=== PATIENT | male | born 1990 | race Caucasian/White ===

== ENCOUNTER 2017-04-01 02:22 | Emergency (ER) | payer SELFPAY ==
[2017-04-01 03:11] LABS: BASOPHILS 0.2 % (0-2); EOSINOPHILS 1.7 % (0-7); HEMATOCRIT 44.9 % (42.0-54.0); HEMOGLOBIN 15.7 g/dL (13.5-17.5); LYMPHOCYTES 36.7 % (15-50); MCH 32.1 pg (26.0-34.0); MCV 91.8 fL (80.0-100.0); MEAN PLATELET VOLUME 9.8 fL (7.4-10.4); NEUTROPHILS 52.4 % (40-80); PLATELET COUNT 278 10x3/uL (130-400); RBC 4.89 10x6/uL (4.20-6.10); RDW 12.1 % (11.5-14.5); WBC 9.9 10x3/uL (4.8-10.8)
[2017-04-01 03:22] LABS: ALBUMIN 3.9 g/dL (3.4-5.0); ALKALINE PHOSPHATASE 103 U/L (46-116); ALT (SGPT) 29 U/L (10-68); BILIRUBIN - TOTAL 0.19 mg/dL (0.2-1.3); CALC OSMOLALITY 280 mosm/kg (275-300); CALCIUM 9.3 mg/dL (8.5-10.1); CARBON DIOXIDE 23.7 mmol/L (21.0-32.0); CHLORIDE - SERUM 105 mmol/L (98-107); CREATININE - SERUM 0.9 mg/dL (0.6-1.3); GLUCOSE 101 mg/dL (74-106); POTASSIUM - SERUM 3.1 mmol/L (3.5-5.1); SODIUM 142 mmol/L (136-145); UREA NITROGEN 8 mg/dL (7-18); eGFR NON AFRICAN AMERICAN > 90 mL/min (90-120)
[2017-04-01 03:32] LABS: CHOL - HDL RATIO 3.2 ratio (2.3-4.9); CHOLESTEROL, TOTAL 110 mg/dL (0-200); CREATINE KINASE 172 UL (21-232); HDL CHOLESTEROL 34 mg/dL (32-96); LDL CHOLESTEROL 53 mg/dL (0-100); LDL-HDL RATIO 1.6 ratio (1.5-3.5); TRIGLYCERIDE 115 mg/dL (30-200)
[2017-04-01 03:34] LABS: TROPONIN-I < 0.017 ng/mL (0.000-0.060)
[2017-04-01 05:05] LABS: APPEARANCE HAZY (CLEAR); BILIRUBIN NEGATIVE (NEGATIVE); COLOR YELLOW (YELLOW); GLUCOSE NEGATIVE (NEGATIVE); KETONE NEGATIVE (NEGATIVE); LEUKOCYTE ESTERASE NEGATIVE (NEGATIVE); NITRITE NEGATIVE (NEGATIVE); PH 6.5 (5.0-6.0); PROTEIN NEGATIVE (NEGATIVE); SPECIFIC GRAVITY 1.015 (1.005-1.020); UROBILINOGEN NORMAL (NORMAL)
[2017-04-01 05:11] LABS: UDS - AMPHET POSITIVE QUAL (NEGATIVE); UDS - BARB NEGATIVE QUAL (NEGATIVE); UDS - BENZO NEGATIVE QUAL (NEGATIVE); UDS - COCAINE NEGATIVE QUAL (NEGATIVE); UDS - METH NEGATIVE QUAL (NEGATIVE); UDS - OPIATE NEGATIVE QUAL (NEGATIVE); UDS - PCP NEGATIVE QUAL (NEGATIVE); UDS - THC NEGATIVE QUAL (NEGATIVE)
== END 2017-04-01 05:50 | disposition home or self-care (01) ==
LOC: D.ER 02:22
PROVIDERS: Family Medicine
DX: R07.89 Other chest pain (principal); F19.10 Other psychoactive substance abuse, uncomplicated; I10 Essential (primary) hypertension

== ENCOUNTER 2019-07-26 20:53 | Emergency (ER) | payer SELFPAY ==
[~2019-07-26] VITALS: Ht 188 cm; Wt 93.2 kg
[2019-07-26 20:57] VITALS: Ht 188 cm; Wt 93.2 kg
[2019-07-26 21:16] LABS: BASOPHILS 0.2 % (0-2); EOSINOPHILS 1.5 % (0-7); HEMATOCRIT 43.8 % (42.0-54.0); HEMOGLOBIN 15.8 g/dL (13.5-17.5); IMMATURE GRANULOCYTES 0.2 % (0-5); LYMPHOCYTES 35.5 % (15-50); MCH 32.6 pg (26.0-34.0); MCHC 36.1 g/dL (31.0-37.0); MCV 90.5 fL (80.0-100.0); MEAN PLATELET VOLUME 9.7 fL (7.4-10.4); NEUTROPHILS 56.6 % (40-80); PLATELET COUNT 257 10x3/uL (130-400); RBC 4.84 10x6/uL (4.20-6.10); RDW 12.2 % (11.5-14.5); WBC 10.9 10x3/uL (4.8-10.8)
[2019-07-26 21:26] LABS: APTT 26.5 SECONDS (22.8-39.4); PROTIME 12.7 SECONDS (11.6-15.0)
[2019-07-26 21:35] LABS: ALBUMIN 4.2 g/dL (3.4-5.0); ALKALINE PHOSPHATASE 99 U/L (46-116); ALT (SGPT) 24 U/L (10-68); BILIRUBIN - TOTAL 0.38 mg/dL (0.2-1.3); CALC OSMOLALITY 287 mosm/kg (275-300); CALCIUM 8.7 mg/dL (8.5-10.1); CARBON DIOXIDE 32.2 mmol/L (21.0-32.0); CHLORIDE - SERUM 107 mmol/L (98-107); GLUCOSE 93 mg/dL (74-106); POTASSIUM - SERUM 3.9 mmol/L (3.5-5.1); PROTEIN - SERUM 7.5 g/dL (6.4-8.2); SODIUM 145 mmol/L (136-145); UREA NITROGEN 11 mg/dL (7-18); eGFR NON AFRICAN AMERICAN > 90 mL/min (90-120)
[2019-07-26 21:45] LABS: CKMB 4.4 U/L (0.0-3.6); CREATINE KINASE 135 UL (21-232); PRO BNP 68 pg/mL (0-125); TROPONIN-I < 0.017 ng/mL (0.000-0.060)
[2019-07-26] MEDS ORDERED: ZYRTEC10 MG PO (22:16)
[2019-07-26] MEDS ORDERED: FLUTICASONE PRO16 GM NASAL (22:16)
[2019-07-26 22:50] VITALS: BP 121/75
== END 2019-07-26 22:50 | disposition home or self-care (01) ==
LOC: D.ER 20:53
PROVIDERS: Emergency Medicine
DX: J30.9 Allergic rhinitis, unspecified (principal); F17.200 Nicotine dependence, unspecified, uncomplicated

== ENCOUNTER 2019-12-24 19:36 | Emergency (ER) | payer SELFPAY ==
[~2019-12-24] VITALS: Ht 188 cm; Wt 90.9 kg
[~2019-12-24 19:36] MED LIST: FLUTICASONE PRO16 GM NASAL; HYDROCODON-ACET15 ML PO; PENICILLIN V P500 MG PO; ZYRTEC10 MG PO
[2019-12-24 19:46] VITALS: Ht 188 cm; Wt 90.9 kg
[2019-12-24] MEDS ORDERED: MUCINEX DM ER1 EAC1 PO (20:39)
[2019-12-24] MEDS ORDERED: TAMIFLU75 MG PO (20:39)
[2019-12-24 21:17] VITALS: BP 137/76
== END 2019-12-24 21:17 | disposition home or self-care (01) ==
LOC: D.ER 19:36
DX: J11.1 Influenza due to unidentified influenza virus with other respiratory manifestations (principal); Z72.0 Tobacco use

== ENCOUNTER 2020-05-14 23:07 | Emergency (ER) | payer SELFPAY ==
[~2020-05-14] VITALS: Ht 188 cm; Wt 84.1 kg
[~2020-05-14 23:07] MED LIST changes: +MUCINEX DM ER1 EAC1 PO; +TAMIFLU75 MG PO
[2020-05-14 23:33] VITALS: Ht 188 cm; Wt 84.1 kg
[2020-05-15] MEDS ORDERED: PENICILLIN V P500 MG PO (02:06)
[2020-05-15] MEDS ORDERED: HYDROCODON-ACE1 EA10 PO (02:06)
[2020-05-15 02:30] VITALS: BP 140/75
== END 2020-05-15 02:30 | disposition home or self-care (01) ==
LOC: D.ER 23:07
DX: K02.9 Dental caries, unspecified (principal); K08.89 Other specified disorders of teeth and supporting structures; Z72.0 Tobacco use

== ENCOUNTER 2021-04-18 08:33 | Emergency (ER) | payer MEDICAID ==
[~2021-04-18] VITALS: Ht 188 cm; Wt 99.8 kg
[~2021-04-18 08:33] MED LIST changes: +HYDROCODON-ACE1 EA10 PO
[2021-04-18 08:42] VITALS: BP 118/80; Ht 188 cm; Wt 99.8 kg
[2021-04-18] MEDS ORDERED: HYDROCODON-ACE1 EAC7 PO (09:32)
[2021-04-18] MEDS ORDERED: AMOXICILLIN875 MG PO (09:32)
== END 2021-04-18 10:05 | disposition home or self-care (01) ==
LOC: D.ER 08:33
DX: K02.9 Dental caries, unspecified (principal)